=== PATIENT | female | born 1955 | race Caucasian/White ===

== ENCOUNTER 2018-08-09 08:27 | Day surgery (SDC) | payer OTHER ==
--- OUTSIDE RECORDS SUMMARY | 2018-08-09 08:29 | XMS REPORT ---
:1955 [facility] Address [address] [place] [address] Dr. Adamson [address] [place] [id number] Care Team Providers Name Role Phone Unavailable Unavailable Unavailable Problems This patient has no known problems. Allergies, Adverse Reactions, Alerts This patient has no known allergies or adverse reactions. Medications This patient has no known medications.
[2018-08-09] MEDS ORDERED: Ringers Lactate 1,000 ML IV ONE (09:09)
[2018-08-09] MEDS ORDERED: PROPOFOL 200 MG/20 ML VIAL IV ONE ×2 (11:19)
[2018-08-09] MEDS ORDERED: LIDOCAINE 1% MPF 5 ML VIAL ONE (11:20)
--- NOTE | 2018-08-09 11:46 | ENDO RPT ---
[address], [id number] COLONOSCOPY PROCEDURE REPORT EXAM DATE: 08/09/2018 PATIENT NAME: Ariana Howell MR #: [id number] BIRTHDATE: 1955 ATTENDING: Darrell Danielson DR STATUS: outpatient PRE SAL[employer] TECHNICAL ENGINEER: Leobardo Miller Tech, Fiona Navarro, and Lisbeth Christopher RN INDICATIONS: The patient is a 63 yr old Female here for a colonoscopy due to colon cancer screening PROCEDURE PERFORMED: Colonoscopy with biopsy - cold polypectomy MEDICATIONS: Per Anesthesia. ESTIMATED BLOOD LOSS: None CONSENT: The patient understands the risks and benefits of the procedure and understands that these risks include, but are not limited to: sedation, allergic reaction, infection, perforation and/or bleeding. Alternative means of evaluation and treatment include, among others: physical exam, x-rays, and/or surgical intervention. The patient elects to proceed with this endoscopic procedure. DESCRIPTION OF PROCEDURE: During intra-op preparation period all mechanical medical equipment was checked for proper function. Hand hygiene and appropriate measures for infection prevention was taken. Procedure, possible complications, alternatives including, but not limited to possibility of bleeding, perforation, tear, infection, sepsis, need for surgery, need for blood transfusion, were explained to the patient. After the risks, benefits and alternatives of the procedure were thoroughly explained, Informed consent was verified, confirmed and timeout was successfully executed by the treatment team. The patient was placed in the left lateral position. A digital rectal exam was performed and revealed internal hemorrhoids and A digital rectal exam was performed and revealed external hemorrhoids. After appropriate level of anesthesia, the scope was passed. The [id number] ([id number]) endoscope was introduced through the anus and advanced to the cecum, which was identified by both the appendix and ileocecal valve. The quality of the prep was fair. The instrument was then slowly withdrawn as the colon was fully examined. Scope withdrawal time was 12 minutes. COLON FINDINGS: A few small smooth flat polyps with friable surfaces and mucous caps were found at the cecum and in the ascending colon. A polypectomy was performed with a cold snare and with cold forceps. The resection was complete, the polyp tissue was completely retrieved and sent to histology. Retroflexed views revealed no abnormalities. The scope was then completely withdrawn from the patient and the procedure terminated. ADVERSE EVENTS: There were no complications. IMPRESSIONS: Few small flat polyps were found at the cecum and in the ascending colon; polypectomy was performed with a cold snare and with cold forceps RECOMMENDATIONS: 1. fiber rich diet 2. await biopsy results 3. avoid NSAIDS for 2 weeks 4. follow-up: office 2 week(s) 5. increase dietary water RECALL: Return in 1 year(s) for Colonoscopy, pending biopsy results. multiple small polyps Darrell Danielson DR eSigned: Darrell Danielson DR 08/09/2018 11:46 AM cc: CPT CODES: ICD9 CODES: PATIENT NAME: Ariana Howell MR#: [id number]
== END 2018-08-09 12:35 | disposition home or self-care (01) ==
LOC: OR 08:27
PROVIDERS: ATTEND Surgery
PROC: 0DBK8ZX Excision of Ascending Colon, Via Natural or Artificial Opening Endoscopic, Diagnostic (ICD-10-PCS; 2018-08-09)
PROC: 0DBH8ZX Excision of Cecum, Via Natural or Artificial Opening Endoscopic, Diagnostic (ICD-10-PCS; principal; 2018-08-09 10:00)
DX: Z12.11 Encounter for screening for malignant neoplasm of colon (principal); D12.0 Benign neoplasm of cecum; D12.2 Benign neoplasm of ascending colon; K64.8 Other hemorrhoids; K64.4 Residual hemorrhoidal skin tags; Z79.899 Other long term (current) drug therapy
CPT/HCPCS: 45385; 45380; 88305; J2704 ×2